=== PATIENT | male | born 1975 | race Caucasian/White ===

== ENCOUNTER 2021-05-13 10:50 | Emergency (ER) | payer BC ==
[~2021-05-13] VITALS: Ht 180.3 cm; Wt 86.2 kg
[2021-05-13] MEDS ORDERED: DULO60CA45 PO (11:04)
[2021-05-13] MEDS ORDERED: TRAM50TA2 PO (11:13)
--- NOTE | 2021-05-13 11:39 | NUR ---
pt seen and evaluated by dr soto. discharge instructions rendered as per md order d/cd in stable condition.
== END 2021-05-13 11:40 | disposition home or self-care (01) ==
LOC: ER 10:50
DX: S20.212A Contusion of left front wall of thorax, initial encounter (principal); W01.198A Fall on same level from slipping, tripping and stumbling with subsequent striking against other object, initial encounter; Y93.83 Activity, rough housing and horseplay; Y92.89 Other specified places as the place of occurrence of the external cause
CPT/HCPCS: A4663

== ENCOUNTER → 2022-10-30 | Emergency (ER) | payer BC ==
[~2022-10-30] MED LIST: DULO60CA45 PO; TRAM50TA2 PO
== END | disposition left against medical advice (07) ==
LOC: ER 15:22
DX: Z53.21 Procedure and treatment not carried out due to patient leaving prior to being seen by health care provider (principal)